=== PATIENT | female | born 1995 | race Caucasian/White ===

== ENCOUNTER 2016-06-03 08:40 | Emergency (ER) | payer OTHER, BC ==
[~2016-06-03] VITALS: Ht 157.5 cm; Wt 71.8 kg
[~2016-06-03 08:40] MED LIST: ETON1IMP2 XX; LORA-741 PO
[2016-06-03 08:44] VITALS: TEMP 37.1; Ht 157.5 cm; Wt 71.8 kg
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
--- NOTE | 2016-06-03 09:28 | DIAGNOSTIC IMAGING REPORT ---
CT HEAD WITHOUT CONTRAST (CT) CLINICAL HISTORY: closed head injury HEADACHE, MEMORY LOSS. COMPARISON STUDY: No previous studies for comparison. TECHNIQUE: Axial CT of the brain is performed from the vertex to the skull base. IV contrast was not administered for this examination. CT DOSE: 537.48 mGy.cm FINDINGS: No intra or extra-axial mass lesions are visualized. There is no CT evidence of acute cortical infarction. There is no evidence of midline shift. There is no acute hemorrhage. No calvarial fractures are visualized. There is no evidence of pathologic ventricular dilatation. There is no evidence of acute sinusitis IMPRESSION: Normal noncontrast head CT. Electronically signed by: Jonel Vickers M.D. 06/03/2016 9:27 AM Dictated Date/Time: 06/03/2016 9:26 AM
[2016-06-03] MEDS ORDERED: ONDA4TAB10 SL (09:35)
[2016-06-03] MEDS ORDERED: ONDANSETRON 4MG OD TAB PO ONE (09:45)
[2016-06-03 09:47] VITALS: BP 98/68; PULSE 90; O2SAT 99
== END 2016-06-03 09:48 | disposition home or self-care (01) ==
LOC: C.EDB 08:44
DX: S09.90XA Unspecified injury of head, initial encounter (principal); V89.2XXA Person injured in unspecified motor-vehicle accident, traffic, initial encounter